=== PATIENT | female | born 1950 ===

== ENCOUNTER 2022-04-02 06:55 | Day surgery (SDC) | payer MEDICARE, BC ==
[~2022-04-02] VITALS: Ht 160 cm; Wt 87.8 kg
[~2022-04-02 06:55] MED LIST: ALBU90OI61 INH; ALPR.5 PO; AMBIEN CR; ASPI325; ASPI81CH PO; ASPI81EC; BUDE6HFA INH; DILT360ER; DOXA2 PO; EDARBYCLOR 40-1 EACH PO; ERYT250; ESTR2 PO; ESZO2 PO; HCTZ; HYDCHL25; HYDCHL25 PO; LOSA50 PO; MAG DELAY64 MG PO; Micro-K10 MEQ PO; NITR.6SL; Nitrostat0.4 MG PO; Omeprazole20 M1 PO; POTA10T; ROSU10TA PO; RXTRAM50 PO; Robaxin750 MG PO; SPIR25 PO; TERB250 PO; TRAM50 PO; VITAMIN B125000 MC1 PO; [UNRECOGNIZED DRUG - OTHER]; [UNRECOGNIZED DRUG - OTHER]; [UNRECOGNIZED DRUG - OTHER]; [UNRECOGNIZED DRUG - REMARK]
[2022-04-02] MEDS ORDERED: CLIMARA1 EACH PO (07:30)
[2022-04-02] MEDS ORDERED: VITAMIN D325 MC3 PO (07:31)
--- NOTE | 2022-04-02 07:36 | NUR ---
PT HAS HAD EPISODES OF BRADYCARDIA DURING PROCEDURES, UNABLE TO SAY WHETHER OR NOT FROM VAGAL STIMULATION OR FROM ANESTHESTHESIA. WILL NOTIFY ANESTHESIOLOGIST.
--- NOTE | 2022-04-02 08:02 | NUR ---
04/02/22 0802 Jonny Fonseca History, Chart, Medications and Allergies reviewed before start of procedure.MONITOR INTACT WITH CONTINUOUS PULSE OXIMETRY AND INTERMITTENT BP.3-LEAD EKG REVIEWED WITH PHYSICIAN PRIOR TO START OF PROCEDURE.O2 VIA POM INTACT THROUGHOUT SEDATION/PROCEDURE.
== END 2022-04-02 09:43 | disposition home or self-care (01) ==
LOC: ORSCMMR 06:55 → ORD 08:15 → ORSCMMR 08:15
PROVIDERS: Surgery
PROC: 0DBL8ZX Excision of Transverse Colon, Via Natural or Artificial Opening Endoscopic, Diagnostic (ICD-10-PCS; principal; 2022-04-02 08:15)
DX: Z12.11 Encounter for screening for malignant neoplasm of colon (principal); Z86.010 Personal history of colon polyps; D12.3 Benign neoplasm of transverse colon; K57.30 Diverticulosis of large intestine without perforation or abscess without bleeding; F41.9 Anxiety disorder, unspecified; G47.33 Obstructive sleep apnea (adult) (pediatric); I20.9 Angina pectoris, unspecified; E78.5 Hyperlipidemia, unspecified; Z86.73 Personal history of transient ischemic attack (TIA), and cerebral infarction without residual deficits; J45.909 Unspecified asthma, uncomplicated; I12.9 Hypertensive chronic kidney disease with stage 1 through stage 4 chronic kidney disease, or unspecified chronic kidney disease; E11.22 Type 2 diabetes mellitus with diabetic chronic kidney disease; N18.32 Chronic kidney disease, stage 3b; E66.9 Obesity, unspecified; Z68.34 Body mass index [BMI] 34.0-34.9, adult; Z87.891 Personal history of nicotine dependence; Z79.899 Other long term (current) drug therapy
CPT/HCPCS: 82947; 88305; J2704; J7120